=== PATIENT | male | born 1995 | race Caucasian/White ===

== ENCOUNTER 2018-03-20 22:45 | Emergency (ER) | payer BC, MEDICAID ==
[~2018-03-20] VITALS: Ht 172.7 cm; Wt 87.0 kg
--- NOTE | 2018-03-20 23:17 | NUR ---
ERP TO BEDSIDE AWAITING ORDERS. PARENTS HAVE BEEN CONTACTED VIA TEXT FROM PT'S PHONE
[2018-03-20] MEDS ORDERED: ONDANSETRON ODT 8 MG PO ONE (23:30)
--- NOTE | 2018-03-20 23:53 | NUR ---
PT ASLEEP IN NO DISTRESS ON PULSE OX.
[2018-03-20 23:55] VITALS: BP 121/64
--- NOTE | 2018-03-21 01:28 | NUR ---
PT IS ASLEEP. PT PLACED ON 2 L NC O2 DUE TO LOW O2 SATS. PT REMAINS A MTF AT THIS TIME. PT ALSO A/O X 2
== END 2018-03-21 01:54 | disposition home or self-care (01) ==
LOC: ED 23:34
DX: F12.122 Cannabis abuse with intoxication with perceptual disturbance (principal); F41.1 Generalized anxiety disorder; F22 Delusional disorders; Y92.89 Other specified places as the place of occurrence of the external cause
CPT/HCPCS: 99283